=== PATIENT | female | born 1990 | race African-American/Black ===

== ENCOUNTER 2019-11-19 10:23 | Emergency (ER) | payer SELFPAY ==
[~2019-11-19] VITALS: Ht 160 cm; Wt 160.0 kg
[2019-11-19] MEDS ORDERED: ALBUTEROL (0.083%) 2.5MG/3ML NEB HHN STA (10:57)
[2019-11-19] MEDS ORDERED: IPRATROPIUM BROMIDE (0.02%) 0.5MG/2.5ML NEB HHN STA (10:57)
[2019-11-19] MEDS ORDERED: PREDNISONE 20MG TABLET PO STA (10:57)
[2019-11-19 12:58] VITALS: BP 142/76
== END 2019-11-19 13:01 | disposition home or self-care (01) ==
LOC: ER 10:23
DX: J45.901 Unspecified asthma with (acute) exacerbation (principal); F41.9 Anxiety disorder, unspecified
CPT/HCPCS: 81025; 99283; J7512; J7611

== ENCOUNTER 2020-02-26 21:46 | Emergency (ER) | payer MEDICARE ==
[~2020-02-26] VITALS: Ht 167.6 cm; Wt 181.0 kg
[2020-02-26 21:59] VITALS: BP 145/86
[2020-02-26] MEDS ORDERED: ONDANSETRON 4MG ODT PO ONE (23:30)
[2020-02-26] MEDS ORDERED: ACETAMINOPHEN 325MG TABLET PO ONE (23:30)
== END 2020-02-27 06:30 | disposition home or self-care (01) ==
LOC: ER 21:46
DX: J06.9 Acute upper respiratory infection, unspecified (principal); J45.909 Unspecified asthma, uncomplicated
CPT/HCPCS: 99283

== ENCOUNTER 2025-03-13 09:07 | Emergency (ER) | payer SELFPAY ==
[~2025-03-13] VITALS: Ht 167.6 cm; Wt 203.7 kg
[2025-03-13 09:20] VITALS: O2SAT 100
[2025-03-13 10:06] LABS: BASOPHILS % 0.5 % (0.0-2.0); EOSINOPHILS % 1.1 % (0.0-5.0); HEMATOCRIT. 36.1 % (36.0-48.0); HEMOGLOBIN. 11.7 g/dL (12.0-16.0); LYMPHOCYTES % 26.3 % (20.0-50.0); MEAN CORPUSCULAR HEMOGLOBIN 27.6 pg (28.0-32.0); MEAN CORPUSCULAR HGB CONC 32.5 g/dL (31.0-37.0); MEAN CORPUSCULAR VOLUME 85.1 fL (81.0-99.0); MONOCYTES % 7.4 % (2.0-8.0); NEUTROPHILS % 64.7 % (40.0-76.0); PLATELET 245 x1000/uL (130-400); RED BLOOD CELL COUNT 4.24 mill/uL (4.2-5.4); RED CELL DISTRIBUTION WIDTH 13.6 % (11.6-14.6); WHITE BLOOD COUNT 6.2 x1000/uL (4.5-11.0)
[2025-03-13 10:18] LABS: CHLORIDE 105 mEq/L (98-107); POTASSIUM 3.8 mEq/L (3.5-5.1); SODIUM 139 mEq/L (136-145)
[2025-03-13 10:20] LABS: CALCIUM 8.9 mg/dL (8.7-10.4); CARBON DIOXIDE 29 mEq/L (21-32)
[2025-03-13 10:20] LABS: CLARITY URINE CLOUDY (CLEAR); COLOR URINE YELLOW (YELLOW); GLUCOSE URINE NEGATIVE (NEGATIVE); KETONES URINE NEGATIVE (NEGATIVE); LEUKOCYTE ESTERASE URINE NEGATIVE (NEGATIVE); NITRITE URINE NEGATIVE (NEGATIVE); OCCULT BLOOD URINE NEGATIVE (NEGATIVE); PROTEIN URINE NEGATIVE (NEGATIVE); SPECIFIC GRAVITY URINE 1.026 (1.005-1.030); UROBILINOGEN URINE 0.2 E.U./dL (0.2-1.0)
[2025-03-13 10:25] LABS: CREATININE 0.9 mg/dL (0.6-1.0); GLUCOSE 99 mg/dL (70-105); UREA NITROGEN BLOOD 18 mg/dL (9-23)
[2025-03-13 10:26] LABS: PROTHROMBIN TIME 10.6 sec (9.6-11.0)
[2025-03-13 10:48] LABS: SQUAMOUS EPITHELIAL CELL URINE 2+ /lpf (RARE/1+)
[2025-03-13 10:49] LABS: BACTERIA URINE TRACE; RBC URINE NONE SEEN /hpf (0-2); WBC URINE 0-2 /hpf (0-2)
[2025-03-13 10:50] LABS: MUCUS URINE 1+ /lpf (< = 2+)
[2025-03-13] MEDS: KETOROLAC 30MG/ML VIAL IM STA (11:18)
[2025-03-13] MEDS: DICYCLOMINE 10 MG/5 ML ORAL SYR PO STA (11:19)
[2025-03-13] MEDS: MAGNESIUM/ALUMINUM HYDROXIDE/SIMETHICONE 30ML UDC PO STA (11:19)
[2025-03-13] MEDS ORDERED: ACET-2708 MT (11:53)
[2025-03-13] MEDS ORDERED: DICY-18 MT (11:53)
[2025-03-13] MEDS ORDERED: FAMO-135 MT (11:53)
[2025-03-13 12:02] VITALS: BP 135/87; PULSE 87; RESP 16; TEMP 37; O2SAT 100
== END 2025-03-13 12:10 | disposition home or self-care (01) ==
LOC: ER 09:07
DX: R10.12 Left upper quadrant pain (principal); J45.909 Unspecified asthma, uncomplicated; I10 Essential (primary) hypertension; Z68.45 Body mass index [BMI] 70 or greater, adult
CPT/HCPCS: 99283; 80048; 81003; 81025; 83690; 85025; 85610; 36415; 96372; J1885